=== PATIENT | female | born 1990 | race Caucasian/White ===

== ENCOUNTER 2016-12-28 20:18 | Inpatient (IN) | payer OTHER ==
[~2016-12-28] VITALS: Ht 170.2 cm; Wt 85.3 kg
[2016-12-29] MEDS ORDERED: Lactated Ringer's 1,000 ML IV PRN (00:11)
[2016-12-29] MEDS ORDERED: Hemorrhage Kit, Post Partum XX ONE ×2 (00:15→05:25)
[2016-12-29] MEDS ORDERED: Oxytocin 30 Units/500 mL LR 30 UNITS in IV Premix 1 EACH IV PRN (00:15)
[2016-12-29] MEDS ORDERED: Carboprost 250 mCg/mL Inj IM PRN ×2 (00:15→05:25)
[2016-12-29] MEDS ORDERED: Oxytocin 10 Unit/mL Inj IM PRN ×2 (00:15→05:25)
[2016-12-29] MEDS ORDERED: Sodium Chloride LOK Flush 10 mL Syringe IVFLUSH PRN (00:15)
[2016-12-29] MEDS ORDERED: Methylergonovine 0.2 mg/mL Inj IM PRN ×2 (00:15→05:25)
[2016-12-29 00:27] LABS: Mean Corpuscular Hemoglobin 27.1 pg (27.0-35.0); Mean Corpuscular Volume 80.8 fL (81-100)
[2016-12-29] MEDS ORDERED: HYDROcodone-APAP 5-325 mg Tablet PO PRN (05:25)
[2016-12-29] MEDS ORDERED: Lactated Ringer's 1,000 ML IV SCH (05:25)
[2016-12-29] MEDS ORDERED: LANOlin HPA 7 Gm Ointment TOPICAL PRN (05:25)
--- NOTE | 2016-12-29 05:35 | PCM.OBVAG ---
Vaginal Delivery Date of Service Dec 29, 2016 Pre Operative Diagnosis Pre Operative Diagnosis Term gestation, labor Post Operative Diagnosis Post Operative Diagnosis Term gestation, delivered Procedure Obstetical Procedure: Normal Spontaneous Vaginal Delivery, Repair of Perineal Tear (superficial right superior labial laceration repaired with running 3-O Vicryl) Line Ordering Clinician/Street Light Mechanic Provider and Street Light Mechanic: Marco Raya MD Indication for Procedure Induction: Active labor, SROM, Progressed normally through labor Findings Obstetrical Findings: [place] (Female), Cord (3 Vessel), Presentation (Vertex) , 1 minute (8), 5 minutes (9), Placenta (Intact/Normal), Perineal Laceration (right superior labial superficial laceration) Analgesia/Medications Procedural Analgesia: None Procedure Details Procedure Details Patient admitted at 39 6/7 weeks EGA, in active phase labor. Uncomplicated labor and delivery of a vigorous that was transferred to the maternal chest immediately after . Delayed cord clamping was observed. Blood Loss & Administration Estimated Blood Loss: 250 Post Procedure Plan Post delivery Condition: Mom stable, Baby stable to nursery Marco Raya MD Dec 29, 2016 05:35
[2016-12-29] MEDS: Benzocaine (Dermoplast) 20% 60 Gm Spray TOPICAL PRN (06:43)
[2016-12-29] MEDS: Witch Hazel-Glycerin Pads TOPICAL PRN (06:44)
[2016-12-30 07:10] LABS: Mean Corpuscular Hemoglobin 26.8 pg (27.0-35.0); Mean Corpuscular Volume 82.1 fL (81-100)
--- NOTE | 2016-12-30 08:51 | PCM.PNOBPP ---
Subjective Date of Service Dec 30, 2016 Post : Spontaneous Vaginal Delivery Visit History PPD#1 Subjective Feeling well. No complaints. Lochia: Normal Pain Management: No or Minimal Pain Gastrointestinal: Good Appetite Postop Activity: Ambulating Independently Labs Laboratory Tests 12/30/16 06:45: White Blood Count 11.2, Red Blood Count 3.69, Hemoglobin 9.9, Hematocrit 30.3, Mean Corpuscular Volume 82.1, Mean Corpuscular Hemoglobin 26.8, Mean Corpuscular Hemoglobin Concent 32.7, Red Cell Distribution Width 12.8, Platelet Count 284 Exam Vital Signs Vital Signs: VS reviewed, stable Exam Abdomen: Uterus is (U-1), Fundus firm, Abdomen soft, Abdomen non-tender Perineum: Laceration : Voiding without difficulty Extremities: No cords, No tenderness/swelling Lungs: Clear to Auscultation, Normal Air Movement Heart: Normal S1, Normal S2, No Murmurs/Rubs/Gallops General: Alert, Oriented X3, Cooperative, No Acute Distress OB Post Assessment/Plan Assessment PPD#1 -- doing well Problems: (1) Spontaneous vaginal delivery Status: Acute ICD Code: O80 (2) 40 weeks gestation of Status: Acute ICD Code: Z3A.40 (3) normal course Status: Acute ICD Code: Z39.2 Pain Evaluation: Adequate Pain Control Post plan: Anticipate discharge home today Marco Raya MD Dec 30, 2016 08:51
--- NOTE | 2016-12-30 08:54 | PCM.DC.OB ---
Obstetrical Discharge Summary Date of Service Dec 30, 2016 Date of hospital admission Dec 28, 2016 at 23:50 Date of Discharge: Dec 30, 2016 Providers Admitting Physician: Marco Raya MD Primary Care Physician: [place] Attending Physician: Marco Raya MD Problems: (1) Spontaneous vaginal delivery Status: Acute ICD Code: O80 (2) 40 weeks gestation of Status: Acute ICD Code: Z3A.40 (3) normal course Status: Acute ICD Code: Z39.2 Brief History and Physical: 26yo admitted at 39 6/7 weeks EGA, in active phase labor. Hospital Course: Uncomplicated labor course. Uncomplicated delivery of a vigorous female. Uneventful course. Discharge Medications: vitamins once daily, OTC NSAIDs as needed. Disposition Home Follow-up plan 6 weeks Discharge Diet: No restrictions Discharge Activity-General: Pelvic Rest for 6 weeks Marco Raya MD Dec 30, 2016 08:54
--- NOTE | 2016-12-30 08:57 | PCM.DIOB ---
Obstetrical Disch Instruction Date of Service: Dec 30, 2016 Dates of Hospitalization Date of Hospital Admission Dec 28, 2016 at 23:50 Providers Admitting Physician: Marco Raya MD Primary Care Physician: [place] Attending Physician: Marco Raya MD Discharge Diagnosis Problems: (1) Spontaneous vaginal delivery Status: Resolved ICD Code: O80 (2) 40 weeks gestation of Status: Resolved ICD Code: Z3A.40 (3) normal course Status: Resolved ICD Code: Z39.2 Diet Discharge Diet: No restrictions Activity Discharge Activity-General: Pelvic Rest for 6 weeks Dressing and Incisional Care Hygiene: May shower Follow Up Plan Follow-up appointment: Weeks (6), With Primary Care Provider Call your provider for: Fever or Chills, Shortness of breath, Heavy vaginal bleeding, Epigastric pain, Excessive constipation, Vaginal discomfort, Red painful breasts Marco Raya MD Dec 30, 2016 08:57
[2016-12-30] MEDS: Benzocaine (Dermoplast) 20% 60 Gm Spray TOPICAL PRN (09:02)
[2016-12-30] MEDS: Witch Hazel-Glycerin Pads TOPICAL PRN (09:02)
[2016-12-30 09:56] VITALS: BP 123/79; PULSE 59; RESP 17
== END 2016-12-30 10:43 | disposition home or self-care (01) | DRG 775 ==
LOC: FBCO 20:18 → FBC 23:50
PROVIDERS: ADMIT Family Medicine; ATTEND Family Medicine
PROC: 10E0XZZ Delivery of Products of Conception, External Approach (ICD-10-PCS; principal; 2016-12-29)
DX: O80 Encounter for full-term uncomplicated delivery (principal); Z3A.39 39 weeks gestation of pregnancy; Z37.0 Single live birth